=== PATIENT | female | born 1980 | race African-American/Black ===

== ENCOUNTER 2018-07-11 09:00 | Emergency (ER) | payer MEDICAID ==
[~2018-07-11] VITALS: Ht 152.4 cm; Wt 73.0 kg
[2018-07-11] MEDS ORDERED: ONDANSETRON 4MG ODT PO ONE (13:15)
[2018-07-11] MEDS ORDERED: KETOROLAC 60MG/2ML VIAL IM ONE (13:15)
[2018-07-11] MEDS ORDERED: HYDROCODONE/ACETAMINOPHEN 5/325MG TABLET PO ONE (15:45)
[2018-07-11 16:39] VITALS: BP 156/87
== END 2018-07-11 16:40 | disposition home or self-care (01) ==
LOC: ER 09:33
DX: J06.9 Acute upper respiratory infection, unspecified (principal); R51 Headache; F17.200 Nicotine dependence, unspecified, uncomplicated; Z98.51 Tubal ligation status
CPT/HCPCS: 81025; 96372; 99283; J1885; Q0162

== ENCOUNTER 2021-10-24 15:24 | Emergency (ER) | payer MEDICAID ==
[~2021-10-24] VITALS: Ht 152.4 cm; Wt 75.0 kg
[2021-10-24 20:30] VITALS: BP 197/120
[2021-10-24] MEDS ORDERED: CYCLOBENZAPRINE 10MG TABLET PO ONE (20:30)
[2021-10-24] MEDS ORDERED: LIDOCAINE 5% PATCH TOP SCH (20:30)
[2021-10-24] MEDS ORDERED: KETOROLAC 60MG/2ML VIAL IM ONE (20:30)
[2021-10-24] MEDS ORDERED: HYDR25TA MT (21:03)
[2021-10-24] MEDS ORDERED: LIDO700A30 TP (21:03)
[2021-10-24] MEDS ORDERED: NAPR-1176 MT (21:03)
[2021-10-24] MEDS ORDERED: HYDROCHLOROTHIAZIDE 25MG TABLET PO ONE (21:15)
== END 2021-10-24 21:40 | disposition home or self-care (01) ==
LOC: ER 15:24
DX: S13.8XXA Sprain of joints and ligaments of other parts of neck, initial encounter (principal); V49.49XA Driver injured in collision with other motor vehicles in traffic accident, initial encounter; Y93.89 Activity, other specified; Y92.89 Other specified places as the place of occurrence of the external cause; Y99.8 Other external cause status; I10 Essential (primary) hypertension; Z98.51 Tubal ligation status
CPT/HCPCS: 81025; 96372; 99283; J1885

== ENCOUNTER 2022-01-04 14:20 | Emergency (ER) | payer MEDICAID ==
[~2022-01-04] VITALS: Ht 160 cm; Wt 89.0 kg
[~2022-01-04 14:20] MED LIST: HYDR25TA MT; LIDO700A30 TP; NAPR-1176 MT
[2022-01-04 14:45] VITALS: BP 185/112
[2022-01-04] MEDS: IBUPROFEN 600MG TABLET PO STA (17:19)
[2022-01-04] MEDS ORDERED: NAPR-681 PO (17:45)
== END 2022-01-04 19:29 | disposition home or self-care (01) ==
LOC: ER 14:33
DX: M25.561 Pain in right knee (principal); I10 Essential (primary) hypertension
CPT/HCPCS: 73562; 81025; 99283

== ENCOUNTER 2022-10-09 14:17 | Emergency (ER) | payer MEDICAID ==
[~2022-10-09] VITALS: Ht 154.9 cm; Wt 71.0 kg
[~2022-10-09 14:17] MED LIST changes: +NAPR-681 PO
[2022-10-09 14:22] VITALS: BP 175/101
[2022-10-09] MEDS ORDERED: ACETAMINOPHEN 325MG TABLET PO ONE (17:00)
[2022-10-09] MEDS ORDERED: ACET-2708 MT (17:38)
== END 2022-10-09 18:22 | disposition home or self-care (01) ==
LOC: ER 14:17
DX: S93.402A Sprain of unspecified ligament of left ankle, initial encounter (principal); I10 Essential (primary) hypertension; W19.XXXA Unspecified fall, initial encounter; Y93.89 Activity, other specified; Y92.89 Other specified places as the place of occurrence of the external cause; Y99.8 Other external cause status
CPT/HCPCS: 73610; 99283; Z7610

== ENCOUNTER 2024-09-02 17:12 | Emergency (ER) | payer SELFPAY ==
[~2024-09-02] VITALS: Ht 157.5 cm; Wt 66.0 kg
[~2024-09-02 17:12] MED LIST changes: +ACET-2708 MT
[2024-09-02 17:14] VITALS: O2SAT 97
[2024-09-02 17:21] VITALS: BP 195/129; PULSE 91; RESP 16; TEMP 36.7; O2SAT 100
[2024-09-02] MEDS ORDERED: HYDR-4001 MT (21:54)
[2024-09-02] MEDS ORDERED: LIDO700A15 TP (21:54)
[2024-09-02] MEDS: KETOROLAC 30MG/ML VIAL IM ONE (22:12)
[2024-09-02] MEDS: ACETAMINOPHEN 325MG TABLET PO ONE (22:13)
== END 2024-09-02 22:30 | disposition home or self-care (01) ==
LOC: ER 17:20
DX: M25.561 Pain in right knee (principal); F10.90 Alcohol use, unspecified, uncomplicated; I10 Essential (primary) hypertension; Z79.899 Other long term (current) drug therapy; Z98.51 Tubal ligation status; W18.39XA Other fall on same level, initial encounter; Y93.89 Activity, other specified; Y92.89 Other specified places as the place of occurrence of the external cause; Y99.8 Other external cause status; Y90.9 Presence of alcohol in blood, level not specified
CPT/HCPCS: 73560; 93970; 96372; 99285; J1885; Z7610; L1830